=== PATIENT | female | born 1945 | race Caucasian/White ===

== ENCOUNTER 2021-09-24 09:18 | Emergency (ER) | payer MEDICARE ==
[2021-09-24 09:58] LABS: #Monocytes 0.3 10x3/uL (0.0-1.1); #Neutrophils 4.9 10x3/uL (1.5-8.4); %Basophils 0.6 % (0.0-2.0); %Lymphocytes 19.3 % (18.0-47.0); %Monocytes 4.9 % (0.0-10.0); %Neutrophils 74.3 % (40.0-75.0); Hemoglobin 15.6 g/dL (12.0-15.5); Mean Corpuscular HGB CONC 35.7 g/dL (32.0-36.0); Mean Corpuscular Hemoglobin 31.9 pg (27.0-33.0); Mean Corpuscular Volume 89.4 fl (81.6-98.3); Mean Platelet Volume 8.9 fl (7.4-10.4); Platelet Count 296 10x3/uL (150-450); RBC Distribution Width 11.2 % (11.5-14.5); Red Blood Cell (RBC) Count 4.89 10x6/uL (3.90-5.03); White Blood Cell (WBC) Count 6.6 10x3/uL (3.5-10.5)
[2021-09-24 10:14] LABS: ALT (SGPT) 57 U/L (8-55); AST (SGOT) 37 U/L (5-34); Albumin 4.9 g/dL (3.4-4.8); Alkaline Phosphatase 82 U/L (40-110); Anion Gap 20 mmol/L (10-20); BUN (Urea Nitrogen) 12 mg/dL (9.8-20.1); Bilirubin, Total 1.2 mg/dL (0.2-1.2); Calc. Creatinine Clearance 0 mL/min (70-130); Calcium 10.1 mg/dL (7.8-10.44); Carbon Dioxide 19 mmol/L (23-31); Chloride 103 mmol/L (98-107); Globulin 3.1 g/dL (2.4-3.5); Glucose 186 mg/dL (83-110); Potassium 3.5 mmol/L (3.5-5.1); Sodium 138 mmol/L (136-145)
[2021-09-24] MEDS ORDERED: Midazolam HCl 2 mg/2 ml Vial ONE (10:35)
== END 2021-09-24 12:53 | disposition home or self-care (01) ==
LOC: CSHERS 09:18
DX: F19.239 Other psychoactive substance dependence with withdrawal, unspecified (principal); E11.65 Type 2 diabetes mellitus with hyperglycemia; R74.01 Elevation of levels of liver transaminase levels; I10 Essential (primary) hypertension; I48.91 Unspecified atrial fibrillation; R94.31 Abnormal electrocardiogram [ECG] [EKG]; G47.00 Insomnia, unspecified
CPT/HCPCS: 36416; 80053; 84484; 85025; 93005; 96374; J2250

== ENCOUNTER 2021-12-20 12:57 | Outpatient (CLI) | payer MEDICARE | END 2021-12-20 12:58 | disposition home or self-care (01) | LOC: CSHMRI 12:57 | PROVIDERS: ATTEND Specialist | DX: M87.9 Osteonecrosis, unspecified (principal); M16.11 Unilateral primary osteoarthritis, right hip; M94.251 Chondromalacia, right hip; M25.751 Osteophyte, right hip | CPT/HCPCS: 82565 ==

== ENCOUNTER 2025-10-18 09:06 | Emergency (ER) | payer MEDICARE ==
[2025-10-18 10:05] LABS: #Basophils 0.04 10x3/uL (0.0-0.2); #Eosinophils Less than 0.03 10x3/uL (0.0-0.5); #Monocytes 0.47 10x3/uL (0.0-1.1); #Neutrophils 6.91 10x3/uL (1.5-8.4); %Basophils 0.5 % (0.0-2.0); %Eosinophils 0.1 % (0.0-6.0); %Lymphocytes 14.3 % (18.0-47.0); %Monocytes 5.4 % (0.0-10.0); %Neutrophils 78.8 % (40.0-75.0); Hematocrit 43.9 % (34.9-44.5); Hemoglobin 15.8 g/dL (12.0-15.5); Mean Corpuscular Hemoglobin 33.0 pg (27.0-33.0); Mean Corpuscular Volume 91.6 fL (81.6-98.3); Platelet Count 204 10x3/uL (150-450); Red Blood Cell (RBC) Count 4.79 10x6/uL (3.90-5.03); White Blood Cell (WBC) Count 8.76 10x3/uL (3.5-10.5)
[2025-10-18 10:58] LABS: Chloride 100 mmol/L (98-107); Potassium 3.6 mmol/L (3.5-5.1); Sodium 137 mmol/L (136-145)
[2025-10-18 11:01] LABS: ALT (SGPT) 44 U/L (Less than 34); AST (SGOT) 44 U/L (11-34); Albumin 4.8 g/dL (3.1-4.5); Alkaline Phosphatase 68 U/L (40-110); Anion Gap 17 mmol/L (10-20); BUN (Urea Nitrogen) 18 mg/dL (9.8-20.1); Bilirubin, Total 1.0 mg/dL (0.3-1.2); Calc. Creatinine Clearance 0 mL/min (70-130); Calcium 10.1 mg/dL (7.8-10.44); Carbon Dioxide 24 mmol/L (23-31); Globulin 3.3 g/dL (2.4-3.5); Glucose 141 mg/dL (83-110); Lipase 17 U/L (8-78)
== END 2025-10-18 11:31 | disposition home or self-care (01) ==
LOC: CSHERS 09:06
DX: R10.9 Unspecified abdominal pain (principal); R74.01 Elevation of levels of liver transaminase levels; I10 Essential (primary) hypertension; E11.9 Type 2 diabetes mellitus without complications; Z79.899 Other long term (current) drug therapy; Z55.6 Problems related to health literacy
CPT/HCPCS: 76705; 80053; 83690; 85025; 93976